=== PATIENT | male | born 1985 | race Caucasian/White ===

== ENCOUNTER 2016-10-24 09:31 | Inpatient (IN) | payer OTHER ==
--- NOTE | ~2016-10-24 | PN ---
Unit #: [id number] #: [id number] Patient: KAMILA CAMPBELL [id number] [facility] [address] [place] [address] [id number] I MR#: [id number] NAME: KAMILA CAMPBELL ROOM: P186 Age: 31 Sex: M Admission Date: 10/24/2016 : 1985 Attending Physician: Romi Billy M.D. Admitting Physician: Romi Billy M.D. Primary Care Physician: Generic Doctor Not In System [facility] PROGRESS NOTES DATE OF SERVICE: 10/28/2016 SUBJECTIVE Mr. Campbell is a 31-year-old white male who was seen today and chart was reviewed, and case was discussed with the staff. His antidepressant seems to be accepted for the last night on his own request and he reports that he is feeling much better and has not any tolerability issues with the medication. Meanwhile, he is hoping to get into a long-term rehabilitation level of care by tomorrow. MENTAL STATUS EXAMINATION Young white male who was casually dressed with fair personal hygiene, appears to be in no acute distress or discomfort. He was awake and alert with intact orientation. His mood was anxious with a congruent affect. He denies any suicidal or homicidal ideations. His insight and judgment remain slightly impaired. TREATMENT PLAN 1. We will continue him on his current medications and treatment protocol. We will monitor his response to medications and make further adjustments as needed. 2. We will continue to follow up. Dictated by... Lance Liriano/carlitos TD: 10/30/2016 02:21 JOB #: [id number] [facility] PROGRESS NOTES X Romi Billy MD PROGRESS NOTE
--- NOTE | ~2016-10-24 | PN ---
Unit #: [id number] #: [id number] Patient: KAMILA CAMPBELL [id number] [facility] [address] [place] [address] [id number] I MR#: [id number] NAME: KAMIAL CAMPBELL ROOM: P186 Age: 31 Sex: M Admission Date: 10/24/2016 : 1985 Attending Physician: Romi Billy M.D. Admitting Physician: Romi Billy M.D. Primary Care Physician: Generic Doctor Not In System [facility] PROGRESS NOTES DATE 10/25/2016 DISCUSSION Mr. Campbell is a 31-year-old, white male with substance abuse and mood disorder who was seen today and chart was reviewed and case was discussed with the staff. He has been anxious, withdrawn and rather seclusive to himself. Meanwhile, he has been cooperative with treatment recommendations. He has been taking medications and tolerating them fairly well with no reported side effects. MENTAL STATUS EXAM Middle-aged white male who was casually dressed with fair personal hygiene, appears to be in no acute distress or discomfort. He was awake and alert on interaction with intact orientation. His mood was anxious with congruent affect. His speech was slow and goal directed. He denies any suicidal or homicidal ideation. Also, denies any auditory or visual hallucinations. His insight and judgement remains slightly impaired. TREATMENT PLAN We will continue him on his current medications and treatment protocol. We will monitor his response and make further adjustments as needed. Dictated by... Lance Liriano/krista TD: 10/26/2016 02:24 JOB #: [id number] [facility] PROGRESS NOTES X Romi Billy MD PROGRESS NOTE
--- NOTE | ~2016-10-24 | HP ---
Unit #: [id number] #: [id number] Patient: KAMILA CAMPBELL [id number] [place] [address] [id number] I MR#: [id number] NAME: KAMILA CAMPBELL. ROOM: P186 Age: 31 Sex: M Admission Date: 10/24/2016 : 1985 Attending Physician: Romi Billy M.D. Admitting Physician: Romi Billy M.D. Primary Care Physician: Generic Doctor Not In System HISTORY AND PHYSICAL HISTORY OF PRESENT ILLNESS Kamila is a 31 year old admitted to [facility] because of his continued polysubstance abuse. PAST MEDICAL HISTORY 1. Long history of polysubstance abuse to include IV heroin. 2. Hepatitis C. PAST SURGICAL HISTORY Nothing reported. ALLERGIES Penicillin (anaphylaxis). SOCIAL HISTORY Smokes 1 pack per day. Denies alcohol. Has a long history of opioid abuse to include IV heroin. FAMILY HISTORY Medically noncontributory. REVIEW OF SYSTEMS CONSTITUTIONAL: No fever or chills. HEENT: Denies any sore throat, ear pain or runny nose. CARDIOVASCULAR: Denies chest pain, irregular heart rhythm or palpitations. CHEST: Denies shortness of breath or cough. No hemoptysis. GASTROINTESTINAL: Denies nausea, vomiting, diarrhea or chronic constipation. ENDOCRINE: Denies history of increased thirst or urination. No recent significant weight loss or gain. GENITOURINARY: Denies dysuria, frequency, or hematuria. SKIN: Denies any rashes. HEMATOLOGIC: Denies history of increased bleeding or bruising. MUSCULOSKELETAL: Denies any hot, swollen joints. No generalized muscle pain. NEUROLOGIC: Denies problems with vision or speech. No frequent, severe headaches. No numbness, tingling or weakness in any extremities. Denies loss of bladder or bowel control. CURRENT MEDICATIONS 1. Detox protocol. 2. Celexa 20 mg daily. 3. Eskalith CR 450 mg b.i.d. Unit #: [id number] #: [id number] Patient: KAMILA CAMPBELL 4. Neurontin 800 mg q.i.d. PHYSICAL EXAMINATION GENERAL: Alert, well-nourished, in no apparent distress. VITAL SIGNS: Blood pressure 130/82, heart rate 84, respirations 16, temperature 98.6. WEIGHT: 200. HEIGHT: 6 feet 2 inches. SKIN: Warm and dry without rash or lesion. HEENT: Normocephalic. TMs not viewed. Oral and nasal passages clear. Conjunctivae clear. PERRLA. EOMs intact. NECK: Supple without lymphadenopathy or thyromegaly. HEART: Regular rate and rhythm without murmur. LUNGS: Clear. ABDOMEN: Soft, nontender. : Not done. EXTREMITIES: No evidence of cyanosis, clubbing or edema. Moves all without focal deficit. NEUROLOGICAL: Grossly within normal limits. Cranial Nerves: II: Visual garcia are intact. III, IV AND : Extraocular movements are intact. Pupils are equal, round and reactive to light. V: Facial sensation is grossly normal. VII: Facial movements and expression are normal. VIII: Auditory acuity grossly intact. IX, X: Uvula is midline. Phonation is normal. XI: Patient shrugs shoulders and turns head normally. XII: Tongue protrudes in the midline. Sensory and Motor Function: Sensory and motor sensation is grossly normal. Motor: moves all extremities well. Coordination: Gait is normal. Deep Tendon Reflexes: Intact. IMPRESSION Psychiatric admission. RECOMMENDATIONS PSYCHIATRIC: Per psychiatrist. MEDICAL: See no contraindications to participate in facility's activities. MEDICAL PROGNOSIS Good. MEDICAL CONDITION Stable. Dictated by... Magi Wright P.A.-C. for Lance Garcia/heied TD: 10/24/2016 18:00 JOB #: [id number] Unit #: [id number] #: [id number] Patient: KAMILA CAMPBELL HISTORY AND PHYSICAL X Magi Wright HISTORY AND PHYSICAL
--- NOTE | ~2016-10-24 | PA ---
Unit #: [id number] #: [id number] Patient: KAMILA CAMPBELL [id number] [facility] [address] [place] [address] [id number] I MR#: [id number] NAME: KAMILA CAMPBELL ROOM: P186 Age: 31 Sex: M Admission Date: 10/24/2016 : 1985 Date of Assessment: 10/24/2016 Attending Physician: Romi Billy M.D. Admitting Physician: Romi Billy M.D. Primary Care Physician: Generic Doctor Not In System PSYCHIATRIC ASSESSMENT DATE OF SERVICE 10/24/2016. IDENTIFYING DATA Mr. Campbell is a 31-year-old white male who is a resident of [place], [place] and is very well known to us from previous multiple encounters and was self-referred to the hospital on a voluntary basis. CHIEF COMPLAINT "I'm tired of wanting to ." HISTORY OF PRESENT ILLNESS Mr. Campbell is a 31-year-old white male with long history of mood disorder and substance abuse and dependence, who was self-referred to the hospital reporting that he has been having suicidal thoughts on and off for years and reports and is not using his drug of choice. He reports his drug of choice has been heroin and reports that he has a 14-years history of heroin addiction and reports using at least 0.5 to 1 g of IV heroin b.i.d. when he is using and reports that he recently got of [facility] and reports that he is building back his tolerance level for using heroin and reports that he is currently using 1 to 2 points daily to get back to where he was using grams and reports his longest period of nonuse was 2 years and reports that he stayed sober for going to meetings and having sponsorship and being in the program, last use of heroin was yesterday and reports using 2 points yesterday and he reports that he was in [facility] for 6 months, but did start using immediately after getting out of the [facility] and reports that this is why he is currently detoxing as he has not used in a while and reports his current detox symptoms significantly including bone aches and pains and low energy, and teary eyes and upset stomach heroin use if he was released from [facility] and that he has attempted suicide before carbon monoxide poisoning. He was seen to be anxious, withdrawn, and was seen to be danger to self and as such, recommendation for inpatient level of care was made and the patient was admitted to the inpatient detox unit. SUBSTANCE ABUSE HISTORY The patient has history of cannabis, cocaine, and opioid abuse, and currently IV heroin has been his drug of choice. PAST PSYCHIATRIC HISTORY The patient has had history of multiple inpatient psychiatric and chemical dependency treatment at [facility] and review of the medical Unit #: [id number] #: [id number] Patient: KAMILA CAMPBELL records indicate that currently he is not active in any treatment program, is not seeing a psychiatrist, and not taking any psychotropic medications. PAST MEDICAL HISTORY Significant for hepatitis C. ALLERGIES Penicillin. PERSONAL AND SOCIAL HISTORY A 31-year-old white male who reports that he is and , and lives alone and has poor social support system. MENTAL STATUS EXAMINATION Young white male who was casually dressed with fair personal hygiene, appears to be in no acute distress or discomfort. He was awake and alert on interaction with intact orientation to time, place, and person. His mood was anxious and depressed with a congruent affect. His speech was slow and restricted in content. His thought processes were disorganized with some looseness of associations and suicidal ideations. His insight and judgment remain significantly impaired. DIAGNOSTIC IMPRESSION Psychiatric: Bipolar disorder, most recent episode depressed, recurrent, moderate, without psychotic features; opioid dependence, moderate and acute withdrawals. Medical: Hepatitis C. Stressors: Moderate psychosocial stressors. TREATMENT PLAN 1. The patient has presented with history of substance abuse and mood disorder, and has been decompensating and will need inpatient hospitalization for detoxification, and safety, and stabilization. We will start him back on his home medications. We will adjust the medications and monitor response. 2. Supportive therapy was provided the patient. ESTIMATED LENGTH OF STAY 5 to 7 days. ABILITY TO HELP SELF Limited. WILLINGNESS TO HELP SELF The patient appears to be willing to help self. STRENGTHS 1. Communicative. 2. Cooperative. PROBLEMS 1. Chronic dysphoric symptoms. 2. Chronic chemical dependency. 3. Poor social support system. DISCHARGE CRITERIA This will be contingent upon the patient's ability to go through detox without having any significant withdrawal symptoms as well as his ability to stay safe to himself, particularly after discharge from the hospital. Unit #: [id number] #: [id number] Patient: KAMILA CAMPBELL Dictated by... Lance Liriano/carlitos TD: 10/25/2016 06:40 JOB #: [id number] PSYCHIATRIC ASSESSMENT X Romi Billy MD PSYCHIATRIC ASSESSMENT
--- NOTE | ~2016-10-24 | DS ---
Unit #: [id number] #: [id number] Patient: KAMILA CAMPBELL [id number] [facility] [address] [place] [address] [id number] I MR#: [id number] NAME: KAMILA CAMPBELL. ROOM: P186 Age: 31 Sex: M Admission Date: 10/24/2016 : 1985 Discharge Date: 10/30/2016 Attending Physician: Romi Billy M.D. Primary Care Physician: Generic Doctor Not In System DISCHARGE SUMMARY IDENTIFYING DATA Mr. Campbell is a 31-year-old white male who is a resident of [place], [place] and was self-referred to the hospital. DISCHARGE DIAGNOSES Psychiatric: Bipolar disorder, most recent episode depressed, recurrent, moderate, without psychotic features; opioid dependence, moderate and acute withdrawals. Medical: Hepatitis C. Stressors: Moderate psychosocial stressors. HISTORY OF PRESENT ILLNESS Please see initial psychiatric evaluation for details. PAST PSYCHIATRIC HISTORY Please see initial psychiatric evaluation for details. PAST MEDICAL HISTORY Please see initial psychiatric evaluation for details. HOSPITAL COURSE The patient was admitted to the adult psychiatric [facility] and [facility] and was oriented to the hospital environment. Routine p.r.n. medications were initiated. He was started back on his home medications. We will also started on opioid detox protocol and he was closely monitored. He was seen to be polite and pleasant, and cooperative with treatment recommendation, and was taking medications regularly and was tolerating them fairly well and was able to show a decent therapeutic response and was wanting to go to a long-term rehab level of care, which was arranged by the forensic social worker; followed by which, it was decided that he will be discharged home and will continue treatment on an outpatient basis. DISCHARGE MEDICATIONS Eskalith CR 450 mg b.i.d. for mood disorder and Effexor XR 75 mg at bedtime for depression. DISCHARGE CONDITION Stable. PROGNOSIS Fair. Unit #: [id number] #: [id number] Patient: KAMILA CAMPBELL Dictated by... Lance Liriano/normal TD: 10/30/2016 06:43 JOB #: [id number] DISCHARGE SUMMARY X Romi Billy MD DISCHARGE SUMMARY
--- NOTE | ~2016-10-24 | PN ---
Unit #: [id number] #: [id number] Patient: KAMILA CAMPBELL [id number] [facility] [address] [place] [address] [id number] I MR#: [id number] NAME: KAMILA CAMPBELL ROOM: P186 Age: 31 Sex: M Admission Date: 10/24/2016 : 1985 Attending Physician: Romi Billy M.D. Admitting Physician: Romi Billy M.D. Primary Care Physician: Generic Doctor Not In System [facility] PROGRESS NOTES DATE OF SERVICE: 10/29/2016 SUBJECTIVE Mr. Campbell is a 31-year-old white male with substance abuse and mood disorder, who was seen today and chart was reviewed, and case was discussed with the staff. He has been anxious, withdrawn, and rather seclusive to himself. Meanwhile, he has been cooperative with treatment recommendations and has been taking the medications and tolerating them fairly well with no reported side effects. MENTAL STATUS EXAMINATION Young white male who was casually dressed with fair personal hygiene, appears to be in no acute distress or discomfort. He was awake and alert with intact orientation. His mood was anxious with a congruent affect. His speech was slow and goal directed. He denies any suicidal or homicidal ideations, and also denies any auditory or visual hallucinations. His insight and judgment remain slightly impaired. TREATMENT PLAN 1. We will continue him on his current medications and treatment protocol. We will monitor his response to medication and make further adjustments as needed. 2. We will continue to follow up. Dictated by... Lance Liriano/carlitos TD: 10/31/2016 07:07 JOB #: [id number] [facility] PROGRESS NOTES X Romi Billy MD PROGRESS NOTE
--- NOTE | ~2016-10-24 | PN ---
Unit #: [id number] #: [id number] Patient: KAMILA CAMPBELL [id number] [facility] [address] [place] [address] [id number] MR#: [id number] NAME: KAMILA CAMPBELL. ROOM: P186 Age: 31 Sex: M Admission Date: 10/24/2016 : 1985 Attending Physician: Romi Billy M.D. Admitting Physician: Romi Billy M.D. Primary Care Physician: Generic Doctor Not In System [facility] PROGRESS NOTES DATE 10/27/2016 DISCUSSION Mr. Campbell is a 31-year-old, white male who was seen today and chart was reviewed and case was discussed with the staff. He appears to be doing better and appears to be coming out of the detox without any complications as he has been taking medication and tolerating them fairly well with no reported side effects. MENTAL STATUS EXAM Young white male who was casually dressed with fair personal hygiene, appears to be in no acute distress or discomfort. He was awake and alert on interaction with intact orientation. His mood was anxious with congruent affect. He denies any suicidal or homicidal ideation. Also, denies any auditory or visual hallucinations. His insight and judgement remains slightly impaired. TREATMENT PLAN 1. We will continue him on his current medications and treatment protocol. We will monitor his response to the medication and make further adjustments as needed. 2. We will continue to follow up. Dictated by... Lance Liriano/krista TD: 10/30/2016 02:36 JOB #: [id number] Unit #: [id number] #: [id number] Patient: KAMILA CAMPBELL [facility] NOT[facility] X Romi Billy MD X PROGRESS NOTE
--- NOTE | ~2016-10-24 | PN ---
Unit #: [id number] #: [id number] Patient: KAMILA CAMPBELL [id number] [facility] [address] [place] [address] [id number] MR#: [id number] NAME: KAMILA CAMPBELL ROOM: P186 Age: 31 Sex: M Admission Date: 10/24/2016 : 1985 Attending Physician: Romi Billy M.D. Admitting Physician: Romi Billy M.D. Primary Care Physician: Generic Doctor Not In System [facility] PROGRESS NOTES DATE 10/26/2016 DISCUSSION Mr. Campbell is a 31-year-old white male who was seen today and chart was reviewed and case was discussed with the staff. He has been anxious, withdrawn, though has not shown any agitation, irritability and has been cooperative with treatment recommendations as he has been taking medications and tolerating them fairly well with no reported side effects. MENTAL STATUS EXAMINATION Young white male who was casually dressed with fair personal hygiene and appears to be in no acute distress or discomfort. He was awake and alert with intact orientation. His mood was anxious with congruent affect. He denies any suicidal or homicidal ideation. His insight and judgement remain slightly impaired. TREATMENT PLAN 1. Will continue his current treatment protocol. Will monitor his response to the medications and make further adjustments as needed. 2. Will continue to follow up. Dictated by... Lance Liriano/heide TD: 10/27/2016 15:40 JOB #: [id number] [facility] PROGRESS NOTES X Romi Billy MD PROGRESS NOTE
[2016-10-25 09:28] LABS: BASOPHIL% 0.5 % (0-2.5); EOSINOPHIL# 0.1 X10e3 (0-0.7); EOSINOPHIL% 1.3 % (0.0-7.0); HEMATOCRIT 46.8 % (38.0-50.0); HEMOGLOBIN 15.7 gm/dL (13.0-16.0); LYMPHOCYTE% 31.9 % (17.0-45.0); MEAN CORPUSCULAR HEMOGLOBIN 32.5 PG (28-34); MEAN CORPUSCULAR HGB CONC 33.5 g/dL (30-36); MEAN PLATELET VOLUME 8.3 FL (6.5-11.5); MONOCYTE# 0.5 X10e3 (0-1.0); MONOCYTE% 7.5 % (3.0-12.0); NEUTROPHIL# 3.7 X10e3 (1.5-7.1); NEUTROPHIL% 58.8 % (40-75); PLATELET COUNT 246 X10e3 (140-420); RED BLOOD COUNT 4.83 X10e (3.90-5.60); RED CELL DISTRIBUTION WIDTH 13.3 % (11.0-15.5); WHITE BLOOD COUNT 6.4 X10e3 (4.0-10.5)
[2016-10-25 09:31] LABS: DIFF IND NO
[2016-10-25 09:54] LABS: ALKALINE PHOSPHATASE 36 U/L (32-92); ALT (SGPT) 83 U/L (10-40); AST (SGOT) 43 U/L (10-42); BILIRUBIN,TOTAL 1.1 mg/dL (0.2-2.0); BLOOD UREA NITROGEN 12 mg/dL (9-23); BUN/CREATININE RATIO 17.14; CALCIUM SERUM 9.3 mg/dL (8.4-10.2); CARBON DIOXIDE 29 mmol/L (22-31); CHLORIDE 106 mmol/L (100-111); CREATININE SERUM 0.7 mg/dL (0.6-1.4); GLOM FILT RATE Estimated ABOVE60 mL/min (>60); GLUCOSE FASTING 92 mg/dL (70-110); POTASSIUM 4.9 mmol/L (3.5-5.1); PROTEIN TOTAL SERUM 7.4 g/dL (6.0-8.3); SODIUM 140 mmol/L (135-145)
[2016-10-25 09:57] LABS: THYROID STIMULATING HORMONE 0.76 uIU/ml (0.34-5.60)
[2016-10-25 10:07] LABS: FREE THYROXIN (T4) 0.9 ng/dL (0.58-1.64)
[2016-10-26 09:27] LABS: URINE APPEARANCE CLEAR; URINE BILIRUBIN NEG (NEG); URINE BLOOD NEG (NEG); URINE COLOR YELLOW; URINE GLUCOSE NEG (NEG); URINE KETONE NEG (NEG); URINE LEUKOCYTE ESTERASE NEG (NEG); URINE NITRATE NEG (NEG); URINE PH 7.5 (5-8); URINE PROTEIN NEG (NEG); URINE UROBILINOGEN 0.2 MG/DL (NEG)
[2016-10-29 13:23] LABS: AMPHETAMINE NEG (NEG); BARBITURATES NEG (NEG); BENZODIAZEPINES NEG (NEG); COCAINE NEG (NEG); MARIJUANA NEG (NEG); OPIATES NEG (NEG); TRICYCLIC ANTIDEPRESSANTS NEG (NEG); U METHADONE NEG (NEG)
== END 2016-10-30 09:20 | disposition home or self-care (01) | DRG 885 ==
LOC: POF 09:31 → P1E 11:55
PROVIDERS: Psychiatry & Neurology Psychiatry
PROC: HZ2ZZZZ Detoxification Services for Substance Abuse Treatment (ICD-10-PCS; principal; 2016-10-24)
DX: F31.32 Bipolar disorder, current episode depressed, moderate (principal); R45.851 Suicidal ideations; F11.23 Opioid dependence with withdrawal; B19.20 Unspecified viral hepatitis C without hepatic coma; Z88.0 Allergy status to penicillin; F17.200 Nicotine dependence, unspecified, uncomplicated
CPT/HCPCS: 80053; 80178; 80307; 81003; 84439; 84443; 85025; 86592